=== PATIENT | male | born 1950 | race Caucasian/White ===

== ENCOUNTER → 2016-03-19 | Outpatient (CLI) | payer BC, OTHER ==
[~2016-03-19] MED LIST: ONDA8TAB62 SL
--- NOTE | 2016-03-19 16:07 | DIAGNOSTIC IMAGING REPORT ---
KUB HISTORY: CHECK STENT ESOPHAGEAL STENT PLEASE COMPARISON: Chest and abdominal series 06/24/2013. KUB 02/11/2016. FINDINGS: There has been proximal migration of the esophageal stent. The stent now resides within the mid to distal esophagus. This does not cross the gastroesophageal junction. There are few epigastric surgical clips. Multiple round calcifications in the deep pelvis consistent with phleboliths. The bowel gas pattern is unremarkable. There are no dilated loops of small bowel to suggest an obstruction. No renal calculi. No ureteral calculi. No pneumoperitoneum or pneumatosis. Tiny linear density at the base of the left lower lobe likely represents scarring or subsegmental atelectasis. IMPRESSION: Proximal migration of the esophageal stent which now resides within the mid to distal esophagus. This no longer crosses the gastroesophageal junction. Electronically signed by: Omar Rodriguez M.D. 03/19/2016 4:06 PM Dictated Date/Time: 03/19/2016 4:03 PM
== END | disposition home or self-care (01) ==
LOC: C.RAD 15:36
PROVIDERS: ATTEND Physical Medicine & Rehabilitation
DX: Z09 Encounter for follow-up examination after completed treatment for conditions other than malignant neoplasm (principal); Z87.19 Personal history of other diseases of the digestive system